=== PATIENT | female | born 1985 | race Caucasian/White ===

== ENCOUNTER 2022-03-20 05:30 | Outpatient (CLI) | payer OTHER ==
[~2022-03-20] VITALS: Ht 172.7 cm; Wt 68.9 kg
[~2022-03-20 05:30] MED LIST: ACHYD1T PO; CIPR-17 PO; DCS100C PO; FRS325T PO; IBP600T1 PO; IBUP800T26 PO; METR500T PO; PREN1TAB71 PO
== END 2022-03-23 14:58 | disposition home or self-care (01) ==
LOC: PREOP 05:30
PROVIDERS: ATTEND Surgery
DX: Z01.818 Encounter for other preprocedural examination (principal)

== ENCOUNTER 2022-03-27 09:55 | Day surgery (SDC) | payer OTHER ==
[2022-03-27] VITALS (11 sets, daily range): BP systolic 96–116; BP diastolic 67–86
[~2022-03-27] VITALS: Ht 172.7 cm; Wt 68.9 kg
[2022-03-27] MEDS ORDERED: LACTATED RINGERS 1,000 ML IV PRN (10:15)
[2022-03-27] MEDS ORDERED: ceFAZolin 2 GM IV Premixed 50 ML IV ONE (10:15)
[2022-03-27] MEDS ORDERED: LIDOCAINE/EPI 2% 1:200,00 (XYLOCAINE) 20 ML VIAL ONE (12:11)
--- NOTE | 2022-03-27 12:26 | Progress Note-Pre Operative ---
Pre-Operative Progress Note H&P Reviewed The H&P was reviewed, patient examined and no changes noted. Time Seen by Provider: 12:23 Date H&P Reviewed: March 27, 2022 Time H&P Reviewed: 12:23 Pre-Operative Diagnosis: Cholelithiasis/Cholecystitis, Chronic Gastritis GUZMAN HOUGH DO March 27, 2022 12:26
[2022-03-27] MEDS ORDERED: IOHEXOL 300 MG/ML 30 ML (OMNIPAQUE 300) VIAL INJ ONE (12:30)
[2022-03-27] MEDS ORDERED: proPOfol 200 MG/20 ML (DIPRIVAN) VIAL IV ONE (12:38)
[2022-03-27] MEDS ORDERED: LIDOCAINE PF 2% 5 ML (XYLOCAINE) VIAL ONE (12:38)
[2022-03-27] MEDS ORDERED: fentaNYL INJ 100 MCG/2 ML AMP ONE (12:38)
[2022-03-27] MEDS ORDERED: ONDANSETRON 4 MG/2 ML (SDV) Z0FRAN ONE (12:38)
[2022-03-27] MEDS ORDERED: ROCURONIUM 50 MG/5 ML (ZEMURON) VIAL IV ONE (12:38)
[2022-03-27] MEDS ORDERED: MIDAZOLAM 2 MG/2 ML (VERSED) VIAL ONE (12:38)
[2022-03-27] MEDS ORDERED: SEVOFLURANE (ULTANE) 15 ML INHAL SOLN ONE (13:27)
--- NOTE | 2022-03-27 13:54 | Anesthesia-General Post-Op ---
General Patient Condition Mental Status/LOC: Same as Preop Cardiovascular: Satisfactory Nausea/Vomiting: Absent Respiratory: Satisfactory Pain: Controlled Complications: Absent Post Op Complications Complications None Follow Up Care/Instructions Patient Instructions None needed. Anesthesia/Patient Condition Patient Condition Patient is doing well, no complaints, stable vital signs, no apparent adverse anesthesia problems. No complications reported per nursing. ONDINA DOVE CRNA March 27, 2022 13:54
--- NOTE | 2022-03-27 13:54 | Progress Note-Post Operative ---
Post-Operative Progess Note Surgeon (s)/Construction Equipment Overhauler (s) Surgeon GUZMAN HOUGH DO Construction Equipment Overhauler: Bk Pre-Operative Diagnosis Cholelithiasis/Cholecystitis, Chronic Gastritis Post-Operative Diagnosis Same plus adhesions and liver mass Procedure & Operative Findings Date of Procedure 03/27/22 Procedure Performed/Findings PROCEDURE: Laparoscopic cholecystectomy with intraoperative cholangiogram Laparoscopic live biopsy EGD with biopsy COMPLICATIONS: None. PROCEDURE: The patient was taken to the operating suite and was prepped and draped in sterile fashion. A surgical pause was performed. In the left upper quadrant under the ribs a 12 mm incision was made. Dissection was taken down to the fascia, which was then scored and grasped with a Fernando and the abdomen was then entered. An 0 Vicryl suture was placed in a rhuzag-[id number]-fjddw fashion at the end of the case. A Gunter trocar was placed and secured. Pneumoperitoneum was achieved. A 5mm trochar placed supra-umbilical above the mesh and then 2 in the right upper quadrant. The gallbladder was then grasped and elevated. The cystic duct, and cystic artery were then dissected out. Clip was placed on the distal portion of the cystic duct which was then partially transected. An arrow catheter was inserted into the duct. The cholangiogram was then performed. No filing defects and contrast made its way into the duodenum. Catheter removed. Clips were placed on proximal portion of the cystic duct and then the duct was then transected. Clips were placed along the proximal and distal portion of the cystic artery which was then transected. Hook cautery was used to dissect the gallbladder from the gallbladder fossa achieving hemostasis. The gallbladder was placed in an Endobag and removed through the 12 mm trocar site. The abdomen was then reinspected. There were small white masses in the liver and we elected to do a biopsy and remove one; using the biopsy forceps. The liver was then cauterized where this was removed with the hook cautery. Copious amounts of irrigation were used to irrigate the abdomen and there were no signs of active bleeding. Hemostasis had been achieved. The 12 mm fascial defect was then closed with an 0 Vicryl suture that had been placed in a aoejsb-xo-iixic fashion. The abdomen was then desufflated, the trocars were removed. The abdomen was then washed and dried. The skin was then closed using 4-0 Monocryl in a subcuticular fashion. The abdomen was washed and dried and Skin Affix was place over incisions. I then started the EGD PROCEDURE NOTE: The scope was inserted down the mouth through the esophagus into the stomach. Pushed into the stomach, pushed past the antrum into the duodenum. Duodenum looked good. Pulled back and noted some irritation of the antrum and did a biopsy here. Then retroflexed the scope, did not see a hiatal hernia, took a picture. Next, pulled the scope into the GE junction, took a picture and then did a biopsy of the GE junction. Pushed the scope back into the stomach, suctioned all the air out of the stomach. At this point pulled the scope up the esophagus and out the mouth. Patient tolerated the procedure well without any complications and was taken to the recovery room in stable condition. Anesthesia Type GET Estimated Blood Loss Estimated blood loss (mL): scant Specimens/Packing Specimens Removed GB and contents Liver mass Antral bx GE jxn bx GUZMAN HOUGH DO March 27, 2022 13:54
--- NOTE | 2022-03-27 13:54 | Diagnostic Imaging Report ---
INDICATION: Intraoperative cholangiogram. COMPARISON: None. TOTAL FLUOROSCOPY TIME: 9 seconds. TOTAL NUMBER OF FLUOROSCOPIC IMAGES SAVED: 40. FINDINGS: Multiple intraoperative image intensifier and digital subtraction angiography views of the upper abdomen were obtained during intraoperative cholangiogram. Images provided show contrast filling the intra- and extra-hepatic biliary ductal systems. No large intraluminal filling defects are seen. Contrast empties into the small bowel, as expected. IMPRESSION: 1. Fluoroscopic guidance provided during intraoperative cholangiogram as above. Dictated by: Dictated on workstation # [id number]
[2022-03-27] MEDS ORDERED: ACHD5005 PO (13:58)
--- NOTE | 2022-03-27 13:58 | Discharge Inst-Surgical ---
Discharge Inst-Surgical Depart Medication/Instructions New, Converted or Re-Newed RX: Transmitted to Pharmacy Patient Instructions Follow up Appt: Make appointment for 1 week. [phone] Instructions: No lifting greater than 20 pounds. No strenuous activity. May shower in 24 hours, no tub bath or soaking. Use incentive spirometer at home as directed. No Smoking Skin/Wound Care: May remove bandages in am. You need to leave the Dermabond on incision it will fall off on it's own. Symptoms to Report: Appetite Changes, Extremity Discoloration, Numbness/Tingling, Swelling Increased, Bleeding Excessive, Eyesight Changes, Pain Increased, Urine Color Change, Constipation(Persistent), Fever over 101 degree F, Pain/Pressure in chest, Urinating Difficulty, Cough Up/Vomit Blood, Heart Beat Irreg/Pounding, Pain/Pressure in jaw, Cramps in feet or legs, Lightheadedness, Pain/Pressure in shoulder, Diarrhea(Persistent), Memory Changes Suddenly, Questions/Concerns, Weight gain consecutive days, Dizziness/Fainting, Nausea/Vomiting, Shortness of Breath, Weight gain over 2 pounds If questions or concerns contact your physician Or seek help at emergency department. Activity Activity as Tolerated: Yes Activity Instructions: Avoid Stress to Incision Driving Instructions: No Driving/Refer to Diet Discharge Diet: Avoid Fatty Foods, Low Fat/Low Cholesterol Diet After 24 Hours: Clear Liquid if Nauseous If Any Problems/Questions/Issu: Contact Your Physician, Go to Emergency Room Skin/Wound Care Infection Signs and Symptoms: Increased Redness, Foul Odor of Wound, Increased Drainage, Skin Itchy or Has a Rash, Increased Swelling, Temperature Above 101 F Wound Care Comment: heating pad to shoulder or neck tonight for pain Bathing Instructions: Shower Stitches/[place]/Dermabond Dis: Tonyond GUZMAN HOUGH DO March 27, 2022 13:58
--- NOTE | 2022-03-27 13:59 | Endoscopy Discharge Instruct ---
Endo Procedure/Findings Findings 1.: Gastritis Discharge Instructions - Activity: You might feel a little sleepy until tomorrow. This is due to the medicine you received to relax you. Until tomorrow, you should: NOT drive a car, operate machinery or power tools. NOT drink any alcoholic beverages. NOT make any important decisions or sign importortant papers. Do not return to work until tomorrow, unless otherwise instructed. Resume previous activities tomorrow. Diet: Start by taking liquids. If you tolerate liquids, advance to solid food. 1.: EGD in 3 years Notify Physician - If you experience excessive bleeding, unusual abdominal pain, fever, or chest pain, contact your doctor immediately. GUZMAN HOUGH DO March 27, 2022 13:59
[2022-03-27] MEDS ORDERED: ONDANSETRON 4 MG/2 ML (SDV) Z0FRAN IVP PRN (14:00)
[2022-03-27] MEDS ORDERED: MEPERIDINE (DEMEROL) INJ 50 MG/ML IVP ONE (14:00)
[2022-03-27] MEDS ORDERED: PROMETHAZINE INJ 25 MG/ML (PHENERGAN) AMP IVP ONE (14:00)
[2022-03-27] MEDS ORDERED: morphine INJ 10 MG/ML 1ML (SYR OR VIAL) IVP ONE (14:00)
[2022-03-27] MEDS ORDERED: HYDROcodone/APAP 5 MG/325 MG (LORTAB) TAB ONE (14:50)
[2022-03-27] MEDS ORDERED: HYDROcodone/APAP 5 MG/325 MG (LORTAB) TAB PO ONE (15:00)
== END 2022-03-27 16:30 | disposition home or self-care (01) ==
LOC: SDC 09:55
PROVIDERS: ATTEND Surgery
DX: K80.10 Calculus of gallbladder with chronic cholecystitis without obstruction (principal); K29.50 Unspecified chronic gastritis without bleeding; K20.90 Esophagitis, unspecified without bleeding
CPT/HCPCS: 76000; 87081; 88304; 88307; 88312

== ENCOUNTER 2022-04-02 07:19 | Emergency (ER) | payer OTHER ==
[~2022-04-02] VITALS: Ht 175 cm; Wt 68.3 kg
[~2022-04-02 07:19] MED LIST changes: +ACHD5005 PO
[2022-04-02 08:23] LABS: BASOPHILS % (AUTO) 0 % (0-10); EOSINOPHILS # (AUTO) 0.2 10^3/uL (0.0-0.3); EOSINOPHILS % (AUTO) 4 % (0-10); HEMATOCRIT 41 % (35-52); HEMOGLOBIN 14.1 g/dL (11.5-16.0); LYMPHOCYTES # (AUTO) 0.9 10^3/uL (1.0-4.0); LYMPHOCYTES % (AUTO) 14 % (12-44); MEAN CORPUSCULAR HEMOGLOBIN 31 pg (25-34); MEAN CORPUSCULAR HGB CONC 34 g/dL (32-36); MEAN CORPUSCULAR VOLUME 89 fL (80-99); MEAN PLATELET VOLUME 8.5 fL (9.0-12.2); MONOCYTES # (AUTO) 0.4 10^3/uL (0.0-1.0); MONOCYTES % (AUTO) 6 % (0-12); NEUTROPHILS # (AUTO) 5.1 10^3/uL (1.8-7.8); NEUTROPHILS % (AUTO) 76 % (42-75); PLATELET COUNT 232 10^3/uL (130-400); WHITE BLOOD COUNT 6.8 10^3/uL (4.3-11.0)
[2022-04-02 08:25] LABS: ALBUMIN 4.6 GM/DL (3.2-4.5); CHLORIDE 104 MMOL/L (98-107); POTASSIUM 3.9 MMOL/L (3.6-5.0); SODIUM 139 MMOL/L (135-145)
[2022-04-02 08:27] LABS: CALCIUM 10.1 MG/DL (8.5-10.1)
[2022-04-02 08:28] LABS: GLUCOSE 109 MG/DL (70-105); TOTAL PROTEIN 8.1 GM/DL (6.4-8.2)
[2022-04-02 08:29] LABS: CARBON DIOXIDE 22 MMOL/L (21-32)
[2022-04-02 08:30] LABS: BILIRUBIN,TOTAL 0.6 MG/DL (0.1-1.0)
[2022-04-02 08:31] LABS: ALKALINE PHOSPHATASE 58 U/L (40-136); CREATININE SERUM 0.74 MG/DL (0.60-1.30); GFR ESTIMATED 109
[2022-04-02 08:32] LABS: BUN/CREATININE RATIO 12
[2022-04-02 08:34] LABS: ALANINE AMINOTRANSFERASE 34 U/L (0-55)
[2022-04-02 08:51] LABS: BILIRUBIN,URINE NEGATIVE (NEGATIVE); CLARITY,URINE CLEAR; COLOR,URINE YELLOW; GLUCOSE, URINE (UA) NEGATIVE (NEGATIVE); KETONES,URINE NEGATIVE (NEGATIVE); LEUKOCYTE ESTERASE ,URINE NEGATIVE (NEGATIVE); NITRITE,URINE NEGATIVE (NEGATIVE); PROTEIN,URINE NEGATIVE (NEGATIVE)
--- NOTE | 2022-04-02 08:56 | ED General ---
General Chief Complaint: Abdominal/GI Problems Stated Complaint: ABD PAIN - FEVER - SOA Nursing Triage Note: Pt arrival to ER with complaint of right sided abdominal pain. Pt states that she had her gallbladder out this past Wednesday here at [facility]. Pt states that pain goes up right chest into arm. Pt has prescribed hydrocodone which isnt touching pain. Pt is worried that something is seriously wrong. Pain is at a 8/10. (SERGO SHANNON) History of Present Illness Date Seen by Provider: April 02, 2022 Time Seen by Provider: 08:30 Initial Comments 36 year old female presents to the ED via private vehicle for right sided abdominal pain that radiates into her chest and arm. She had a cholecystectomy on Wednesday performed by Dr. Hough. She reports having significant discomfort for 2 days following the procedure which resolved and has been well controlled with hydrocodone as prescribed until this pain started. She reports yesterday she woke up with sharp right sided abdominal pain that has radiated into her chest and into her right arm. She reports that her right arm feels "" and that she doesn't think she would be able to perform normal tasks with it. She hasn't noticed erythema or discharge from the incisions. Her first bowel movement following the procedure was yesterday following an enema. She thinks she has noticed some mild RUQ distension that has remained following the BM yesterday. She complains of Shortness of breath since the pain began as well as nausea. She has felt febrile but the highest temp she has recorded has been 99.5F. She prefers to be in a curled position and reports that movement and bumps in the car hurt significantly. Timing/Duration: 1-2 Days (SERGO SHANNON) Allergies and Home Medications Allergies Coded Allergies: No Known Drug Allergies (Unverified , 03/23/22) Patient Home Medication List Home Medication List Reviewed: Yes (DACIA VÁZQUEZ MD) Hydrocodone Bit/Acetaminophen (HYDROcodone/APAP 5 MG/325 MG TAB) 1 Tab Tab, 1 TAB PO Q8H PRN for PAIN-MODERATE (5-7) Prescribed by: GUZMAN HOUGH on 03/27/22 1358 Oxycodone HCl/Acetaminophen (Percocet 5-325 mg Tablet) 1 Each Tablet, 1 TAB PO Q4H PRN for PAIN-BREAKTHROUGH Prescribed by: DACIA PURI on 04/02/22 1325 Peg/Electrolytes (Golytely Solution) 236-22.74G Soln, 4,000 ML PO UD Prescribed by: DACIA PURI on 04/02/22 1324 Promethazine HCl (Promethazine Tablet) 25 Mg Tablet, 25 MG PO Q6H PRN for NAUSEA/VOMITING Prescribed by: DACIA PURI on 04/02/22 1324 Review of Systems Review of Systems Constitutional: No fever; malaise, weakness (right arm) EENTM: No hearing loss, No vision loss, No throat pain Respiratory: No cough; short of breath Cardiovascular: chest pain (right sided, primarily when she breaths in); No palpitations Gastrointestinal: RUQ, RLQ Genitourinary: No discharge, No dysuria; frequency (normal); No hematuria : No Musculoskeletal: see HPI Skin: No change in color, No lesions, No rash; other (4 incisions on abdomen from cholecystectomy) Psychiatric/Neurological: No Symptoms Reported Hematologic/Lymphatic: No Symptoms Reported Immunological/Allergic: no symptoms reported (SERGO SHANNON) Past Vnzavya-Oknlpb-Zwjtnn Hx Patient Social History Tobacco Use?: No Use of E-Cig and/or Vaping dev: No Substance use?: No Alcohol Use?: No Pt feels they are or have been: No (SERGO SHANNON) Immunizations Up To Date Tetanus Booster (TDap): Unknown Influenza Vaccine Up-to-Date: No; Not Current First/Initial COVID19 Vaccinat: 01/2021 Second COVID19 Vaccination [place]: 01/2021 Third COVID19 Vaccination Date: 01/2021 (SERGO SHANNON) Seasonal Allergies Seasonal Allergies: No (SERGO SHANNON) Past Medical History Surgeries: Yes (HERNIA REPAIR UMBICAL, HYSTERECTOMY) Gallbladder (cholecystectomy) Respiratory: No Currently Using CPAP: No Currently Using BIPAP: No Cardiac: No Neurological: No Reproductive Disorders: Yes (CPP ENDOMETRIOSIS) Female Reproductive Disorders: Endometriosis, Ovarian Cyst Genitourinary: No Gastrointestinal: Yes (UMBILICAL) Musculoskeletal: No Endocrine: No HEENT: No Cancer: No Psychosocial: No Integumentary: No Blood Disorders: No (SERGO SHANNON) Physical Exam Vital Signs Vital Signs - First Documented 5/26/22 07:51 Temp 36.0 Pulse 78 Resp 20 B/P (MAP) 124/100 (108) Pulse Ox 100 O2 Delivery Room Air (DACIA VÁZQUEZ MD) Vital Signs Capillary Refill : Less Than 3 Seconds (SERGO SHANNON) Height, Weight, BMI Height: '" Weight: 159lbs. oz. 72.928621ux; 22.00 BMI Method: General Appearance: WD/WN, Other (visibly uncomfortable) Eyes: Bilateral Eye PERRL, Bilateral Eye EOMI HEENT: PERRL/EOMI, Pharynx Normal, Moist Mucous Membranes Neck: Non Tender, Supple Respiratory: Chest Non Tender, Lungs Clear, Normal Breath Sounds, No Respiratory Distress Cardiovascular: Regular Rate, Rhythm, No Murmur, Normal Peripheral Pulses Gastrointestinal: Normal Bowel Sounds, Soft, Other (significant Pain with Palpation of RUQ and RLQ. Rebound tenderness in RLQ and positive rovsing's sign. ) Back: No Vertebral Tenderness Extremity: Normal Capillary Refill, Normal Range of Motion, Non Tender, No Pedal Edema Neurologic/Psychiatric: Alert, Oriented x3, No Motor/Sensory Deficits (no numbness, weakness, or other abnormalites of right arm appreciated on exam), ornamental plaster sticker II-XII Norm as Tested Skin: Normal Color, Warm/Dry, Other (3 small incisions across lower abdomen and slightly larger incsion in LUQ. Incisions are cool, dry, and intact without signs of infection. Glue is still present covering each incision. ) Lymphatic: No Adenopathy (SERGO SHANNON) Progress/Results/Core Measures Suspected Sepsis SIRS Temperature: Pulse: 78 Respiratory Rate: 20 Laboratory Tests 04/02/22 07:35: White Blood Count 6.8 Blood Pressure 124 /100 Mean: 108 Laboratory Tests 04/02/22 07:35: Creatinine 0.74, Platelet Count 232, Total Bilirubin 0.6 (SERGO SHANNON) Results/Orders Lab Results Laboratory Tests Test 04/02/22 07:35 04/02/22 08:40 Range/Units White Blood Count 6.8 4.3-11.0 10^3/uL Red Blood Count 4.61 3.80-5.11 10^6/uL Hemoglobin 14.1 11.5-16.0 g/dL Hematocrit 41 35-52 % Mean Corpuscular Volume 89 80-99 fL Mean Corpuscular Hemoglobin 31 25-34 pg Mean Corpuscular Hemoglobin Concent 34 32-36 g/dL Red Cell Distribution Width 13.1 10.0-14.5 % Platelet Count 232 130-400 10^3/uL Mean Platelet Volume 8.5 L 9.0-12.2 fL Immature Granulocyte % (Auto) 0 % Neutrophils (%) (Auto) 76 H 42-75 % Lymphocytes (%) (Auto) 14 12-44 % Monocytes (%) (Auto) 6 0-12 % Eosinophils (%) (Auto) 4 0-10 % Basophils (%) (Auto) 0 0-10 % Neutrophils # (Auto) 5.1 1.8-7.8 10^3/uL Lymphocytes # (Auto) 0.9 L 1.0-4.0 10^3/uL Monocytes # (Auto) 0.4 0.0-1.0 10^3/uL Eosinophils # (Auto) 0.2 0.0-0.3 10^3/uL Basophils # (Auto) 0.0 0.0-0.1 10^3/uL Immature Granulocyte # (Auto) 0.0 0.0-0.1 10^3/uL Sodium Level 139 135-145 MMOL/L Potassium Level 3.9 3.6-5.0 MMOL/L Chloride Level 104 98-107 MMOL/L Carbon Dioxide Level 22 21-32 MMOL/L Anion Gap 13 5-14 MMOL/L Blood Urea Nitrogen 9 7-18 MG/DL Creatinine 0.74 0.60-1.30 MG/DL Estimat Glomerular Filtration Rate 109 BUN/Creatinine Ratio 12 Glucose Level 109 H 70-105 MG/DL Calcium Level 10.1 8.5-10.1 MG/DL Corrected Calcium 8.5-10.1 MG/DL Total Bilirubin 0.6 0.1-1.0 MG/DL Aspartate Amino Transf (AST/SGOT) 21 5-34 U/L Alanine Aminotransferase (ALT/SGPT) 34 0-55 U/L Alkaline Phosphatase 58 40-136 U/L C-Reactive Protein High Sensitivity 3.00 H 0.00-0.50 MG/DL Total Protein 8.1 6.4-8.2 GM/DL Albumin 4.6 H 3.2-4.5 GM/DL Urine Color YELLOW Urine Clarity CLEAR Urine pH 6.0 5-9 Urine Specific [place] >=1.030 1.016-1.022 Urine Protein NEGATIVE NEGATIVE Urine Glucose (UA) NEGATIVE NEGATIVE Urine Ketones NEGATIVE NEGATIVE Urine Nitrite NEGATIVE NEGATIVE Urine Bilirubin NEGATIVE NEGATIVE Urine Urobilinogen 0.2 < = 1.0 MG/DL Urine Leukocyte Esterase NEGATIVE NEGATIVE Urine RBC (Auto) 1+ H NEGATIVE Urine RBC RARE /HPF Urine WBC RARE /HPF Urine Squamous Epithelial Cells 5-10 /HPF Urine Crystals NONE /LPF Urine Bacteria FEW H /HPF Urine Casts NONE /LPF Urine Mucus SMALL H /LPF Urine Culture Indicated YES (DACIA VÁZQUEZ MD) My Orders Orders - DACIA VÁZQUEZ MD Ed Iv/Invasive Line Start (04/02/22 08:10) Cbc With Automated Diff (04/02/22 08:10) Comprehensive Metabolic Panel (04/02/22 08:10) Hs C Reactive Protein (04/02/22 08:10) Ua Culture If Indicated (04/02/22 08:10) Fentanyl Inj (Sublimaze Injection) (04/02/22 09:00) Ondansetron Injection (Zofran Injectio (04/02/22 09:00) Urine Culture (04/02/22 08:40) Morphine Injection (Morphine Injection (04/02/22 09:39) Promethazine Injection (Phenergan Injec (04/02/22 09:45) Lactated Ringers (Lr 1000 Ml Iv Solution (04/02/22 09:45) Ct Abdomen/Pelvis W (04/02/22 09:49) Iohexol Injection (Omnipaque 350 Mg/Ml 1 (04/02/22 10:00) Di Iv Start (Assessment) .IV start (04/02/22 09:55) Received Contrast (Hold Metformin- Contr (04/02/22 10:00) Sodium Chloride Flush (Catheter Flush Sy (04/02/22 10:00) Ns (Ivpb) (Sodium Chloride 0.9% Ivpb Bag (04/02/22 10:00) Hydromorphone Injection (Dilaudid Inject (04/02/22 10:30) Ketorolac Injection (Toradol Injection) (04/02/22 12:15) (DACIA VÁZQUEZ MD) Medications Given in ED Current Medications Medications Dose Ordered Sig/Rob Route Start Time Stop Time Status Last Admin Dose Admin Hydromorphone HCl 0.25 mg ONCE ONCE IVP 04/02/22 10:30 04/02/22 10:31 DC 04/02/22 10:30 0.25 MG Ketorolac Tromethamine 30 mg ONCE ONCE IVP 04/02/22 12:15 04/02/22 12:16 DC 04/02/22 12:17 30 MG (DACIA VÁZQUEZ MD) Vital Signs/I&O 04/02/22 04/02/22 07:51 13:46 Temp 36.0 Pulse 78 64 Resp 20 20 B/P (MAP) 124/100 (108) 121/83 Pulse Ox 100 99 O2 Delivery Room Air Room Air (DACIA VÁZQUEZ MD) Vital Signs/I&O Capillary Refill : Less Than 3 Seconds (SERGO SHANNON) Blood Pressure Mean: 108 Progress Note : Progress Note Patient was given multiple rounds of medications to try to control her symptoms. She was given fentanyl, morphine, and Dilaudid for pain. She was given Zofran followed by Phenergan for nausea treatment. She was also hydrated with IV fluids. She reported adequate control of nausea but stated none of these interventions helped well with pain. She was additionally given Toradol which likewise did not do much for her pain. I discussed the case with Dr. Hough who also presented to the ER to evaluate the patient. He had initially recommended the CT scan. Pain in the chest and symptoms in the arm seem to be directly correlated with exacerbations of pain in the abdomen and follow a referred pain type of pattern. Ultimately, CT scan suggested that constipation was the source of her pain. She may also have some pain associated with remnant free air within the abdomen beneath the diaphragm. Case was reviewed with Dr. Hough again after CT scan. He recommended discharge home with aggressive treatment of constipation by using GoLytely bowel prep. I did discuss admission with the patient as her symptoms seem severe and may be difficult to control at home. Patient declined admission and was discharged with the following discharge instructions reviewed. (DACIA VÁZQUEZ MD) Diagnostic Imaging Diagonstic Imaging: CT Plain Films/CT/US/NM/MRI: abdomen, pelvis Comments CT scan reviewed by me with preliminary report attached below NAME: MICAELA HOLT [facility] REC#: [id number] PT STATUS: REG ER : 1985 PHYSICIAN: DACIA VÁZQUEZ MD ADMIT DATE: 04/02/22/ER Draft Date of Exam:04/02/22 CT ABDOMEN/PELVIS W PROCEDURE: CT abdomen and pelvis with contrast. TECHNIQUE: Multiple contiguous axial images were obtained through the abdomen and pelvis after administration of intravenous contrast. Auto Exposure Controls were utilized during the CT exam to meet ALARA standards for radiation dose reduction. All CT scans use one or more of the following dose optimizing techniques: automated exposure control, MA and/or KvP adjustment based on patient size and exam type or iterative reconstruction. INDICATION: 36-year-old female with a recent cholecystectomy, presents with right upper quadrant abdominal pain. COMPARISONS: None FINDINGS: Lung bases are clear. Cardiac contour is normal. Liver shows uniform attenuation. There is no intraparenchymal mass. There is a trace pneumobilia most likely associated with the recent cholecystectomy and possibly a previous sphincterotomy. There is a small amount of fluid in the gallbladder fossa with an air-fluid level. The bile leak versus a small developing abscess is not entirely excluded. Spleen and GE junction are normal. Stomach and duodenal sweep are unremarkable. Pancreas shows sharp margins. Adrenals are normal. Kidneys appear normal in size, position, and contour with symmetrical perfusion of contrast. There is no hydronephrosis or hydroureter. Both ureters are seen intermittently through their course and appear grossly unremarkable. Partially filled bladder is also normal. Nonopacified loops of small bowel are normal. Large bowel contains a large quantity of fecal material in the ascending and transverse colon. There is a large quantity of material which is in the cecum. The cecum is low-lying and extends into the pelvis. The distal colon beyond the splenic flexure is decompressed to the rectum. Small amount of free pelvic fluid is seen. Visualized vasculature shows normal caliber of the aorta, iliac and femoral arteries with normal origin of the visceral arteries. Bone windows show no overall gross abnormalities. IMPRESSION: 1. There are small pockets of free air in the abdomen. This may be sequela of the cholecystectomy. The procedure was, however, 6 days prior to this study. 2. There is a small quantity of fluid with free air in the gallbladder fossa. This may be residua from the surgery, however, a small bile leak or an abscess cannot be entirely excluded. If clinically warranted, a HIDA scan may be of further value. Short-term follow-up is also recommended. 3. Fecal colon with a large quantity of fecal material in the proximal into the mid to distal transverse colon. The distal colon is decompressed. The cecum contains a large quantity of fecal material and is low-lying into the pelvis. Additional nonemergent findings as described above. Dictated on workstation # [id number] Dict: 04/02/22 1113 Trans: 04/02/22 1125 [id number] [id number] Interpreted by: LYNETTE BARRETT MD Electronically signed by: (SERGO SHANNON) Departure Impression Primary Impression: Constipation Qualified Codes: K59.00 - Constipation, unspecified Additional Impressions: Postoperative pain Nausea & vomiting Qualified Codes: R11.2 - Nausea with vomiting, unspecified Disposition: HOME, SELF-CARE Condition: Stable Departure-Patient Inst. Decision time for Depature: 13:19 (DACIA VÁZQUEZ MD) Referrals: NO,LOCAL PHYSICIAN (PCP/Family) Primary Care Physician Patient Instructions: Constipation in Adults, Severe Abdominal Pain, Adult (DC) Add. Discharge Instructions: Adhere to a clear liquid diet until a significant bowel movement is produced. Use the GoLytely bowel prep to help flush out the constipation. You may additionally use an enema or glycerin suppository to help clear lower stool impaction. Use Zofran as previously prescribed for control of nausea. You may add Phenergan (promethazine) for additional nausea control if needed. Use ibuprofen up to 600 mg every 6 hours as needed for pain control. Use the Percocet only if needed for severe breakthrough pain not controlled by ibuprofen. Percocet may worsen constipation and so should only be used as an urgent backup pain medication. Make a new follow-up appointment with Dr. Hough. Return to the ER if you have symptoms not controlled by the medications prescribed or if you develop new significant symptoms such as fever. Call with questions or concerns. All discharge instructions reviewed with patient and/or family. Voiced understanding. Scripts Peg/Electrolytes (Golytely Solution) 236-22.74G Soln 4000 ML PO UD, #1 EA Try to drink 8 ounces every 10 minutes until there is significant production of stool. Prov: DACIA VÁZQUEZ MD 04/02/22 Oxycodone HCl/Acetaminophen (Percocet 5-325 mg Tablet) 1 Each Tablet 1 TAB PO Q4H PRN for PAIN-BREAKTHROUGH MDD 6 TABS, #5 TAB Prov: DACIA VÁZQUEZ MD 04/02/22 Promethazine HCl (Promethazine Tablet) 25 Mg Tablet 25 MG PO Q6H PRN for NAUSEA/VOMITING, #10 TAB Prov: DACIA VÁZQUEZ MD 04/02/22 Medical Student Attestation and Attending Note: I have personally interviewed and examined this patient along with Sergo jamison, MS 3. I have reviewed student documentation including history, physical, and assessments. I agree with the documentation except where otherwise noted. Exam: General: Alert, oriented, mild to moderate acute distress, well developed, thin HEENT: Normocephalic and atraumatic Heart: Regular rate and rhythm without murmur Lungs: Clear to auscultation bilaterally with normal effort Abdomen: Soft, moderate to severe tenderness in the right lower quadrant. Mild to moderate tenderness elsewhere in the abdomen Neuropsych: Alert, oriented, no focal deficits Skin: Warm and dry without rashes (DACIA VÁZQUEZ MD) Copy Copies To 1: GUZMAN HOUGH CARSON April 02, 2022 08:56 DACIA VÁZQUEZ MD April 02, 2022 13:25
[2022-04-02] MEDS ORDERED: fentaNYL INJ 100 MCG/2 ML AMP IVP ONE (09:00)
[2022-04-02] MEDS ORDERED: ONDANSETRON 4 MG/2 ML (SDV) Z0FRAN IVP ONE (09:00)
[2022-04-02 09:02] LABS: BACTERIA,URINE FEW /HPF; RBC,URINE RARE /HPF; WBC,URINE RARE /HPF
[2022-04-02] MEDS ORDERED: morphine INJ 10 MG/ML 1ML (SYR OR VIAL) IVP STA (09:39)
[2022-04-02] MEDS ORDERED: PROMETHAZINE INJ 25 MG/ML (PHENERGAN) AMP IVP ONE (09:45)
[2022-04-02] MEDS ORDERED: LACTATED RINGERS 1,000 ML IV ONE (09:45)
[2022-04-02] MEDS ORDERED: HOLD METFORMIN - RECEIVED CONTRAST 20 ML VIAL IV SCH (10:00)
[2022-04-02] MEDS ORDERED: NS 100 ML (IVPB) BAG IV ONE (10:00)
[2022-04-02] MEDS ORDERED: IOHEXOL 350 MG/ML 100 ML (OMNIPAQUE 350) VIAL IV ONE (10:00)
[2022-04-02] MEDS ORDERED: CATHETER FLUSH 10 ML SYR IV PRN (10:00)
[2022-04-02] MEDS ORDERED: HYDROmorphone 2 MG/ML VIAL (DILAUDID) IVP ONE (10:30)
--- NOTE | 2022-04-02 11:26 | Diagnostic Imaging Report ---
PROCEDURE: CT abdomen and pelvis with contrast. TECHNIQUE: Multiple contiguous axial images were obtained through the abdomen and pelvis after administration of intravenous contrast. Auto Exposure Controls were utilized during the CT exam to meet ALARA standards for radiation dose reduction. All CT scans use one or more of the following dose optimizing techniques: automated exposure control, MA and/or KvP adjustment based on patient size and exam type or iterative reconstruction. INDICATION: 36-year-old female with a recent cholecystectomy, presents with right upper quadrant abdominal pain. COMPARISONS: None FINDINGS: Lung bases are clear. Cardiac contour is normal. Liver shows uniform attenuation. There is no intraparenchymal mass. There is a trace pneumobilia most likely associated with the recent cholecystectomy and possibly a previous sphincterotomy. There is a small amount of fluid in the gallbladder fossa with an air-fluid level. The bile leak versus a small developing abscess is not entirely excluded. Spleen and GE junction are normal. Stomach and duodenal sweep are unremarkable. Pancreas shows sharp margins. Adrenals are normal. Kidneys appear normal in size, position, and contour with symmetrical perfusion of contrast. There is no hydronephrosis or hydroureter. Both ureters are seen intermittently through their course and appear grossly unremarkable. Partially filled bladder is also normal. Nonopacified loops of small bowel are normal. Large bowel contains a large quantity of fecal material in the ascending and transverse colon. There is a large quantity of material which is in the cecum. The cecum is low-lying and extends into the pelvis. The distal colon beyond the splenic flexure is decompressed to the rectum. Small amount of free pelvic fluid is seen. Visualized vasculature shows normal caliber of the aorta, iliac and femoral arteries with normal origin of the visceral arteries. Bone windows show no overall gross abnormalities. IMPRESSION: 1. There are small pockets of free air in the abdomen. This may be sequela of the cholecystectomy. The procedure was, however, 6 days prior to this study. 2. There is a small quantity of fluid with free air in the gallbladder fossa. This may be residua from the surgery, however, a small bile leak or an abscess cannot be entirely excluded. If clinically warranted, a HIDA scan may be of further value. Short-term follow-up is also recommended. 3. Fecal colon with a large quantity of fecal material in the proximal into the mid to distal transverse colon. The distal colon is decompressed. The cecum contains a large quantity of fecal material and is low-lying into the pelvis. Additional nonemergent findings as described above. Dictated by: Dictated on workstation # [id number]
[2022-04-02] MEDS ORDERED: KETOROLAC 30 MG/ML VIAL IVP ONE (12:15)
[2022-04-02] MEDS ORDERED: CLT4KB PO (13:24)
[2022-04-02] MEDS ORDERED: OXYC1TAB87 PO (13:24)
[2022-04-02] MEDS ORDERED: PROM25TA14 PO (13:24)
[2022-04-02 13:46] VITALS: BP 121/83
== END 2022-04-02 13:40 | disposition home or self-care (01) ==
LOC: EDUNIT# 07:19 → ER 07:20
DX: K59.00 Constipation, unspecified (principal); R11.2 Nausea with vomiting, unspecified; G89.18 Other acute postprocedural pain; R10.31 Right lower quadrant pain; R10.11 Right upper quadrant pain; Z87.19 Personal history of other diseases of the digestive system; Z90.49 Acquired absence of other specified parts of digestive tract; Z90.710 Acquired absence of both cervix and uterus
CPT/HCPCS: 36415; 74177; 80053; 81000; 85025; 86141; 87088